=== PATIENT | male | born 1960 | race Caucasian/White ===

== ENCOUNTER 2018-07-21 12:32 | Outpatient (CLI) | payer MEDICARE, MEDICAID, SELFPAY ==
[2018-07-21 12:43] VITALS: BP 128/72; PULSE 50; RESP 16; TEMP 36.1; O2SAT 96
[2018-07-21] MEDS: Lactated Ringers 1,000 ML 80 ML IV (13:50)
[2018-07-21] MEDS: Midazolam 2 MG/2 ML VIAL IVP (13:54)
[2018-07-21] MEDS: methylPREDNISolone ACETATE 40 MG/ML VIAL IJ (14:00)
[2018-07-21] MEDS: Omnipaque 240 MG/ML 50 ML BTL IJ (14:00)
--- NOTE | 2018-07-21 14:04 | DI.RAD_ITS ---
SYMPTOM/DIAGNOSIS: CERVICAL RADICULOPATHY PAIN CLINIC: Fluoroscopy Time: 24.9 sec 2.56 mGy Fluoroscopy was utilized by Dr. Pierre during the performance of a cervical spine injection. Please refer to the procedure report for complete details.
[2018-07-21 14:05] VITALS: BP 118/67; PULSE 48; RESP 17; O2SAT 99
--- NOTE | 2018-07-21 14:09 | PDOC.PAIN_ITS ---
Pain Clinic Procedure Note Current Active Problems Problem Status Onset Cervical radiculitis Chronic Cervical Epidural Steroid Injection ROSENDO JOHN has been [facility] for cervical epidural steroid injection. COMMENTS: Patient has pain radiating from his left upper extremity. He had previous cervical epidural steroid injection 8 months relief. He did get contrast. He reports history of shellfish allergy. Patient was interviewed and the medical record reviewed. There were no medical , pharmacologic, radiographic or other structural contraindications to attempting fluoroscopically guided epidural steroid injection. Risks and expected side effects as well as potential benefit of the procedure were reviewed and voiced concerns addressed. The printed consent form was signed and witnessed. Standard time-out procedure was performed. The patient was placed in the prone position on the fluoroscopy table and automated blood pressure cuff and pulse oximeter applied. The skin entry point for entering the epidural space by a midline C7-T1 interlaminar approach was identified under fluoroscopy and marked. Following thorough Chlorhexadine preparation of the skin and draping and 1% lidocaine infiltration of the skin entry point and subcutaneous tissues, an 17 gauge Tuohy needle was placed under fluoroscopic guidance and with loss of resistance technique into the epidural space. Upon needle placement and loss of resistance there were no paresthesiae or return of blood or CSF through the needle. An Arrow catheter was thread cephalad to the C 5 level {left } of midline. 1ml of Omnipaque 240 were injected with clear epidural spread in the A/P, lateral and oblique views. 80mg Depomedrol with 1ml sterile normal saline were injected through the catheter with no unusual discomfort expressed. Vital signs were stable throughout the procedure and were as recorded in the docflowsheet by the nursing staff. If given, dosages of intravenous drugs for anxiolysis and analgesia were documented in MAR. Follow up plans and appointments were discussed. Post procedure instruction was given as documented in nursing documentation and having met discharge criteria and was discharged from the [facility]. COMMENTS: Versed 1 mg IV given. He will follow-up as needed. CC: Andreina Campos
== END 2018-07-21 12:52 ==
PROVIDERS: PCP Physician Assistant Medical; Visit Provider Anesthesiology Pain Medicine
DX: M54.12 Radiculopathy, cervical region (principal); G89.29 Other chronic pain
CPT/HCPCS: 62321; 72040; J1030; J2250; J3010; Q9967